=== PATIENT | female | born 1975 | race Native Hawaiian/Other Pacific Islander ===

== ENCOUNTER 2016-12-14 23:17 | Emergency (ER) | payer OTHER ==
[~2016-12-14] VITALS: Ht 167.6 cm; Wt 145.6 kg
[~2016-12-14 23:17] MED LIST: ALPR1TAB61 PO; PAXIL30 MG PO; PRED5TAB3 PO
[2016-12-14 23:25] VITALS: TEMP 97.8
[2016-12-14 23:58] LABS: PLATELET COUNT 386 K/uL (152-353)
[2016-12-15 00:02] LABS: POTASSIUM 3.4 mmol/L (3.6-5.2); SODIUM 134 mmol/L (136-145)
[2016-12-15 03:23] VITALS: BP 160/98
[2017-01-11] MEDS ORDERED: GLUMETZA500 MG PO (13:37)
[2017-01-11] MEDS ORDERED: SPIRONOLACT25 MG PO (13:39)
== END 2016-12-15 03:23 | disposition home or self-care (01) ==
LOC: ED 23:17
DX: K43.6 Other and unspecified ventral hernia with obstruction, without gangrene (principal)
CPT/HCPCS: 80053; 82150; 83690; 85027; 96365; 96374; 96375; 96376; 99285; J2175; J2405; J2550; Q9963

== ENCOUNTER 2016-12-15 03:38 | Outpatient (CLI) | payer OTHER ==
[2017-01-11] MEDS ORDERED: GLUMETZA500 MG PO (13:37)
[2017-01-11] MEDS ORDERED: SPIRONOLACT25 MG PO (13:39)
== END 2016-12-15 20:17 | disposition short-term general hospital (02) ==
LOC: AMB 03:38
DX: K43.6 Other and unspecified ventral hernia with obstruction, without gangrene (principal)
CPT/HCPCS: A0425; A0427; A0429

== ENCOUNTER → 2017-02-04 10:36 | Outpatient (CLI) | payer OTHER ==
[~2017-02-04 10:36] MED LIST changes: +GLUMETZA500 MG PO; +SPIRONOLACT25 MG PO
== END | disposition home or self-care (01) ==
LOC: INF 10:30
DX: N61.1 Abscess of the breast and nipple (principal)
CPT/HCPCS: 87070; 87205; 96365; 96366; J0712

== ENCOUNTER 2017-02-06 09:48 | Outpatient (CLI) | payer OTHER ==
[~2017-02-06] VITALS: Ht 167.6 cm; Wt 147.0 kg
[2017-02-06 09:55] VITALS: BP 105/69; TEMP 98.7
[2017-02-06 11:20] VITALS: BP 120/84; TEMP 98.7
== END 2017-02-06 19:05 | disposition home or self-care (01) ==
LOC: INF 09:48
DX: N61.1 Abscess of the breast and nipple (principal)
CPT/HCPCS: 96365; 96366; J0712

== ENCOUNTER 2017-02-08 09:59 | Outpatient (CLI) | payer OTHER ==
[~2017-02-08] VITALS: Ht 30.5 cm; Wt 0.5 kg
[2017-02-08 12:39] VITALS: BP 136/85; TEMP 98.5
== END 2017-02-08 20:26 | disposition home or self-care (01) ==
LOC: INF 09:59
DX: N61.1 Abscess of the breast and nipple (principal)
CPT/HCPCS: 96365; 96366; J0712

== ENCOUNTER 2018-11-12 11:11 | Outpatient (CLI) | payer OTHER | END 2018-11-12 19:31 | disposition home or self-care (01) | LOC: CT 11:11 | DX: R10.32 Left lower quadrant pain (principal) | CPT/HCPCS: Q9963 ==

== ENCOUNTER 2021-10-31 13:04 | Outpatient (CLI) | payer OTHER | END 2021-10-31 19:15 | disposition home or self-care (01) | LOC: LABW 13:04 | PROVIDERS: ATTEND Nurse Practitioner Primary Care | DX: Z20.822 Contact with and (suspected) exposure to COVID-19 (principal) | CPT/HCPCS: 36415; 82728; 85379; 86140 ==

== ENCOUNTER 2022-05-21 15:06 | Outpatient (CLI) | payer OTHER ==
[2022-05-21 15:59] LABS: POTASSIUM 4.2 mmol/L (3.6-5.2)
== END 2022-05-21 19:14 | disposition home or self-care (01) ==
LOC: RAD 15:06
PROVIDERS: ATTEND Nurse Practitioner Family
DX: R07.89 Other chest pain (principal)
CPT/HCPCS: 36415; 80053; 82550; 82553; 84484; 85379; 93005

== ENCOUNTER 2023-05-06 19:02 | Inpatient (IN) | payer OTHER ==
[~2023-05-06] VITALS: Ht 165.1 cm; Wt 148.6 kg
[2023-05-06 19:06] VITALS: BP 145/109; TEMP 97.2
[2023-05-06 20:15] LABS: PLATELET COUNT 341 K/uL (152-353)
[2023-05-06 20:21] LABS: POTASSIUM 3.3 mmol/L (3.6-5.2)
[2023-05-06 20:34] LABS: PARTIAL THROMBOPLASTIN TIME 37.7 SECONDS (23.9-36.7)
[2023-05-06 21:00] VITALS: BP 137/91
[2023-05-06 21:30] VITALS: BP 119/75
[2023-05-06 22:30] VITALS: BP 131/68
[2023-05-06 23:00] VITALS: BP 126/77
[2023-05-07] VITALS (7 sets, daily range): BP systolic 122–196; BP diastolic 75–104; TEMP 97.4–98.8; Ht 165.1 cm; Wt 148.6 kg
[2023-05-07 05:34] LABS: PLATELET COUNT 374 K/uL (152-353)
[2023-05-07 05:44] LABS: POTASSIUM 3.3 mmol/L (3.6-5.2)
[2023-05-07] MEDS ORDERED: ACET-655 PO (15:49)
[2023-05-07] MEDS ORDERED: GABA300C2 PO (15:49)
[2023-05-07] MEDS ORDERED: LISI20TA11 PO (15:49)
[2023-05-07] MEDS ORDERED: ALBUTEROL108 MCG/AC INH (15:50)
[2023-05-07] MEDS ORDERED: BUSPIRONE5 MG PO (15:51)
[2023-05-07] MEDS ORDERED: VENLAFAXINE ER PO (15:51)
[2023-05-07] MEDS ORDERED: CYCL10TA35 PO (15:52)
[2023-05-07] MEDS ORDERED: NICODERM C21 MG/241 TD (15:53)
[2023-05-07] MEDS ORDERED: HYDROCHLOROT12.5 M1 PO (15:53)
[2023-05-07] MEDS ORDERED: IPRATROPIUM NAS (15:55)
[2023-05-07] MEDS ORDERED: METHOCARBAMOL PO (15:56)
[2023-05-07] MEDS ORDERED: MUPI2OIN2 TOP (15:56)
[2023-05-07] MEDS ORDERED: PROMETHAZINE25 M1 RE (15:57)
[2023-05-08] VITALS: BP 135/84; TEMP 97.6
[2023-05-08 04:00] VITALS: BP 162/98; TEMP 97.8
[2023-05-08 05:48] LABS: PLATELET COUNT 379 K/uL (152-353)
[2023-05-08 06:08] LABS: POTASSIUM 3.6 mmol/L (3.6-5.2)
[2023-05-08 08:00] VITALS: BP 146/91; TEMP 97.4
[2023-05-08 12:00] VITALS: BP 154/99; TEMP 98.1
[2023-05-08] MEDS ORDERED: DOCU100C10 PO (15:01)
[2023-05-08] MEDS ORDERED: AMOX875T8 PO (15:06)
[2023-05-08] MEDS ORDERED: FIORICET PO (15:07)
== END 2023-05-08 16:04 | disposition home or self-care (01) | DRG 195 ==
LOC: ED 19:02 → MED/SURG 21:45
PROVIDERS: ADMIT Family Medicine; ATTEND Internal Medicine
DX: J18.9 Pneumonia, unspecified organism (principal); I10 Essential (primary) hypertension; E11.9 Type 2 diabetes mellitus without complications; Z79.84 Long term (current) use of oral hypoglycemic drugs; D72.829 Elevated white blood cell count, unspecified; K21.9 Gastro-esophageal reflux disease without esophagitis
CPT/HCPCS: 36415; 80053; 80307; 81002; 82150; 82550; 83605; 83690; 83735; 84100; 84443; 84484; 85027; 85610; 85730; 87040; 87502; 87635; 93005; 94664; 94760; 96361; 96365; 96366; 96375; 99284; J1885; J2060; J2175; J2405; J2543; J2765; J3490; Q9963; U0001